=== PATIENT | male | born 1990 | race Caucasian/White ===

== ENCOUNTER 2021-10-01 08:00 | Outpatient (CLI) | payer SELFPAY ==
[2021-10-01 15:12] LABS: BILIRUBIN,URINE NEGATIVE (NEGATIVE); GLUCOSE, URINE (UA) NEGATIVE (NEGATIVE); KETONES,URINE (UA) NEGATIVE (NEGATIVE); LEUKOCYTE ESTERASE, URINE NEGATIVE (NEGATIVE); NITRITE,URINE NEGATIVE (NEGATIVE); OCCULT BLOOD,URINE NEGATIVE (NEGATIVE); PROTEIN,URINE NEGATIVE (NEGATIVE); UROBILINOGEN,URINE 0.2 (NORMAL) E.U./dL (NORMAL)
[2021-10-01 15:22] LABS: CLARITY,URINE CLEAR (CLEAR)
[2021-10-01 15:39] LABS: BACTERIA,URINE None Seen /HPF (None Seen); RBC,URINE 0-5 /HPF (0-5); SQUAMOUS EPITHELIAL CELL,UR NONE SEEN (<= Few); WBC,URINE 0-3 /HPF (0-3)
[2021-10-01 23:59] LABS: CHLAMYDIA TRACHOMATIS DNA NEGATIVE (NEGATIVE); NEISSERIA GONORRHOEAE DNA NEGATIVE (NEGATIVE)
== END 2021-10-01 23:59 | disposition home or self-care (01) ==
LOC: LAB.S 08:00
PROVIDERS: ATTEND Physician Assistant
DX: R30.0 Dysuria (principal)
CPT/HCPCS: 81001; 87086; 87491; 87591; 87661

== ENCOUNTER 2023-05-08 08:00 | Outpatient (CLI) | payer SELFPAY ==
--- NOTE | 2023-05-08 15:53 | XRAY Report ---
PROCEDURE: Finger(s) LT INDICATIONS: LACERATION OF LEFT RING FINGER TECHNIQUE: AP hand, 2 views of the fourth finger(s) acquired. COMPARISON: None. FINDINGS: Bones: There is a comminuted fracture with mild displacement at the distal fourth phalanx tuft.. No suspicious bony lesions. Soft tissues: No suspicious soft tissue calcifications or masses. Distal fourth digit soft tissue laceration. IMPRESSION: Distal fourth digit soft tissue laceration with tuft fracture. Reviewed by: Perlita Virgen MD on 05/08/2023 3:52 PM PDT Approved by: Perlita Virgen MD on 05/08/2023 3:52 PM PDT Station ID: [id number]
== END 2023-05-08 23:59 | disposition home or self-care (01) ==
LOC: DI.S 08:00
PROVIDERS: ATTEND Emergency Medicine
DX: S62.634A Displaced fracture of distal phalanx of right ring finger, initial encounter for closed fracture (principal)

== ENCOUNTER 2023-07-14 19:43 | Emergency (ER) | payer SELFPAY ==
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
[2023-07-14 21:12] VITALS: BP 126/83; O2SAT 97
[2023-07-14] MEDS ORDERED: CYCLOBENZAPRINE 10 MG Prepack 2 PO PRN (21:13)
--- NOTE | 2023-07-14 21:17 | CT Report ---
PROCEDURE: CERVICAL SPINE WO INDICATIONS: neck inj TECHNIQUE: Noncontrast 3 mm thick sections acquired from the skull base to the T4 level. Sagittal and coronal r eformats were then constructed. For radiation dose reduction, the following was used: automated exp osure control, adjustment of mA and/or kV according to patient size. COMPARISON: None. FINDINGS: Image quality: Excellent. Bones: No acute fractures or dislocations. No acute compression fractures of the vertebral bodies. Craniocervical junction is intact. C1-C2 relationship is preserved. Visualized superior ribs are inta ct. Straightening of normal cervical lordosis. Soft tissues: Prevertebral soft tissues are normal in thickness. No paravertebral hematomas. No ap ical pneumothoraces. IMPRESSION: CT cervical spine without acute fracture or traumatic malalignment. Straightening of cervical lordosis likely related to positioning and/or concurrent muscle spasms. Reviewed by: Jhonatan Contreras MD on 07/14/2023 9:16 PM PST Approved by: Jhonatan Contreras MD on 07/14/2023 9:16 PM PST Station ID: [id number]
== END 2023-07-14 21:29 | disposition home or self-care (01) ==
LOC: ED 19:43
DX: S09.90XA Unspecified injury of head, initial encounter (principal); S19.9XXA Unspecified injury of neck, initial encounter; R10.12 Left upper quadrant pain; V59.9XXA Occupant (driver) (passenger) of pick-up truck or van injured in unspecified traffic accident, initial encounter; Y92.410 Unspecified street and highway as the place of occurrence of the external cause; F17.200 Nicotine dependence, unspecified, uncomplicated
CPT/HCPCS: 99283; 99284